=== PATIENT | female | born 1940 | race Caucasian/White ===

== ENCOUNTER → 2017-02-09 | Outpatient (CLI) | payer MEDICARE, OTHER | LOC: KOH-I 01-22 11:30 → EDBD 13:21 → KOH-I 13:21 | DX: F17.210 Nicotine dependence, cigarettes, uncomplicated (principal); R29.898 Other symptoms and signs involving the musculoskeletal system; R91.1 Solitary pulmonary nodule; I70.0 Atherosclerosis of aorta; J98.4 Other disorders of lung | CPT/HCPCS: 93925; G0297 ==

== ENCOUNTER 2017-02-16 09:41 | Observation (INO) | payer MEDICARE, OTHER ==
[2017-02-16 10:44] LABS: HEMOGLOBIN 14.1 gm/dl (12.3-15.3); RED BLOOD COUNT 5.27 M/UL (4.00-5.10); WHITE BLOOD COUNT 8.1 K/UL (4.5-11.0)
== END 2017-02-16 16:05 | disposition short-term general hospital (02) ==
LOC: ER1 09:41 → ZEROF 12:29 → EDBD 16:05 → ZEROF 16:05
PROVIDERS: Physician Assistant; ADMIT Internal Medicine
DX: R07.9 Chest pain, unspecified (principal); I25.10 Atherosclerotic heart disease of native coronary artery without angina pectoris; E11.9 Type 2 diabetes mellitus without complications; I63.9 Cerebral infarction, unspecified; J44.9 Chronic obstructive pulmonary disease, unspecified; J45.909 Unspecified asthma, uncomplicated; K21.9 Gastro-esophageal reflux disease without esophagitis; I25.2 Old myocardial infarction; E78.5 Hyperlipidemia, unspecified; I10 Essential (primary) hypertension; F17.210 Nicotine dependence, cigarettes, uncomplicated; Z98.61 Coronary angioplasty status; Z86.73 Personal history of transient ischemic attack (TIA), and cerebral infarction without residual deficits; Z90.49 Acquired absence of other specified parts of digestive tract; Z98.51 Tubal ligation status; Z88.0 Allergy status to penicillin; Z88.6 Allergy status to analgesic agent; Z88.8 Allergy status to other drugs, medicaments and biological substances; Z79.01 Long term (current) use of anticoagulants; Z79.899 Other long term (current) drug therapy
CPT/HCPCS: 36415; 71010; 80053; 82550; 82553; 83874; 84484; 85025; 85610; 85730; 93005; 94664; 99285; G0378